=== PATIENT | female | born 1945 | race Caucasian/White ===

== ENCOUNTER → 2017-02-06 | Day surgery (SDC) | payer MEDICARE ==
--- NOTE | 2017-02-04 11:04 | Diagnostic Imaging Report ---
PROCEDURE:CHEST 2 VIEWS TECHNIQUE:PA and lateral chest INDICATION:Preoperative evaluation COMPARISON:Patients [facility], , CHEST 2 VIEWS, 03/27/2015, 10:03. FINDINGS: Lungs are clear and symmetrically inflated. No pleural effusions. Normal heart size and mediastinal contour. Intact skeleton with degenerative change of the shoulders. CONCLUSION: No acute abnormality or interval change from March 2015. Dictated by: Shay Wray M.D. on 02/04/2017 at 11:12 Electronically approved by: Shay Wray M.D. on 02/04/2017 at 11:12
[~2017-02-06] MED LIST: ALLEGRA PO; ANTIOXIDANT SO1 EACH PO; ASMANEX; BENICAR40 MG PO; BIOTIN PO; BUPIVACAINE HCL 0.5% INJ 30 ML VIAL INJ ONE; BUPROPION HCL100 MG PO; CEFAZOLIN SOD 2 GM/D5W 50ML 50 ML IV ONE; CO Q-10 PO; DEXAMETHASONE SOD PHOS INJ 4 MG/ML VIAL ONE; DYMISTA NASAL S23 GM; FAMOTIDINE 20 MG/2 ML VIAL IV ONE; FENTANYL CITRATE/PF 100MCG/2 ML INJ ONE; GAMMAGARD LIQUI IV; GLUCOSAMINE &1 EAC1 PO; GLYCOPYRROLATE INJ 1MG/ 5 ML SYR ONE; GRAPE SEED PO; KETOROLAC TROMETHAMINE 30 MG/ML VIAL ONE; LEVOTHYROXINE50 MCG PO; LIDOCAINE HCL 2% LOCAL INJ 5 ML SDV VIAL INJ ONE; METANX PO; MIDAZOLAM HCL 2 MG/2 ML VIAL ONE; NAPROSYN PO; NEOSTIGMINE 1 MG/ML 10ML VIAL ONE; NEOSTIGMINE 5 MG/5ML SYR ONE; NEXIUM40 MG PO; ONDANSETRON HCL INJ 2 MG/ML VIAL ONE; PROBIOTIC & AC1 EACH PO; PROPOFOL IV EMULSION 10 MG/ML 20 ML VIAL ONE; RANITIDINE; ROCURONIUM BROMIDE 10 MG/ML 5ML VIAL ONE; SEVOFLURANE INHAL SOLN 250 ML PEN BTL ONE; SIMCOR 1,000-21 EACH PO; SIMVASTATIN40 MG PO; SUDAFED 12 HOU120 MG PO; VENTOLIN HFA18 GM INH; VITAMIN B COMP1 EAC1 PO; VITAMIN C PO
--- NOTE | 2017-02-06 20:39 | Operative Report ---
DATE OF PROCEDURE: February 06, 2017 PREOPERATIVE DIAGNOSES 1. Hallux varus, right foot. 2. Hammertoe with bone spur interphalangeal joint of the hallux, right foot. 3. Wound 5th metatarsal base, right foot. 4. Digital contracture metatarsophalangeal joint 2nd and 3rd digits, right foot. POSTOPERATIVE DIAGNOSES 1. Hallux varus, right foot. 2. Hammertoe with bone spur interphalangeal joint of the hallux, right foot. 3. Wound 5th metatarsal base, right foot. 4. Digital contracture metatarsophalangeal joint 2nd and 3rd digits, right foot. TITLE OF OPERATION: 1. Arthrodesis 1st metatarsophalangeal joint of the right foot. 2. Arthroplasty with bone spur removal, hallux of the right foot. 3. Debridement of the wound through skin and subcutaneous tissue, plantar aspect of the 5th metatarsal area, right foot. 4. Extensor tenotomy and capsulotomy of the 2nd and 3rd digits of the right foot. ANESTHESIA: General endotracheal. HEMOSTASIS: A right thigh tourniquet at 350 mmHg. PROCEDURE IN DETAIL: The patient was taken to the operating room in a mildly sedated state and placed upon the operating table in the supine position. Following induction of general anesthetic, the right lower extremity is elevated to 60 degrees to exsanguinate before inflating the pneumatic thigh tourniquet to 350 mmHg for hemostasis. Right lower extremity was placed upon the operating table prior to performing the following procedure. Procedure #1: Varus correction with fusion of the 1st metatarsophalangeal joint of the right foot. A linear longitudinal incision was made overlying the hallux varus deformity 1st metatarsophalangeal joint of the right foot. Incision was deepened via sharp and blunt dissection down to the level of dorsal capsular structure. Care was taken to identify and retract all vital structures encountered. Head of 1st metatarsal was delivered into the surgical site and utilizing a cup and cone reamer system all cartilage was denuded from the head of 1st metatarsal and the base of the proximal phalanx. A drill bit was used to fenestrate the opposing bone surfaces and they were aligned properly for fusion. The hallux was fused 10 degrees of dorsiflexion and the appropriate varus, valgus balance. The area was irrigated with copious amounts of sterile saline solution and a lag screw, a 3.0 cannulated lag screw was inserted. A compression plate was applied to the top of the joint and this was fixated with a combination of 3-0 and 4-0 screws. Some were locking, some non-locking. The area was then irrigated with copious amounts of sterile saline solution. Deep closure and capsular repair with 3-0 Vicryl and skin closure 4-0 Vicryl and 4-0 nylon. Attention was then directed to the 5th metatarsal area where a large wound was present. This was debrided through skin subcutaneous tissue. This was considered to be primarily due transfer of pressure from the previous varus deformity over to the 5th metatarsal head. This patient is mildly insensate as well. After debridement, the area was then dressed in the appropriate mildly compressive dressings. Human tissue allograft was injected into the surrounding areas as well as the surgical incision overlying the 1st metatarsophalangeal joint fusion. It was noted after the fusion that the 2nd and 3rd digits were still held in a tightly contracted position, both dorsally and medially. Therefor, intraoperative decision was made to additionally perform the procedure of extensor tenotomy and capsulotomy at the metatarsophalangeal joint level of the 2nd and 3rd metatarsals. These capsules were released medially to reduce the contracture and extensor tendons were lengthened in order to allow for a full plantarflexion and proper alignment of the lesser digits on the metatarsophalangeal joints. These areas were also irrigated and closed with 3-0 Vicryl and 4-0 nylon. The areas of surgery were all blocked with 0.5 Marcaine, Decadron LA. Human tissue allograft as previously mentioned had been injected into all surgical sites. The appropriate mildly compressive dressings were applied and release of the pneumatic thigh tourniquet showed a normal hyperemic flush to all digits of the right foot. Patient left the operating room with vital signs stable in apparent satisfactory condition, having tolerated both the anesthetic and the procedure very well. Job#: [id number]
== END | disposition home or self-care (01) ==
LOC: OR 06:12
PROVIDERS: ATTEND Podiatrist Foot Surgery
DX: M20.31 Hallux varus (acquired), right foot (principal); M20.41 Other hammer toe(s) (acquired), right foot; S91.301A Unspecified open wound, right foot, initial encounter; M77.51 Other enthesopathy of right foot and ankle; M24.574 Contracture, right foot; M19.90 Unspecified osteoarthritis, unspecified site; J45.909 Unspecified asthma, uncomplicated; G47.33 Obstructive sleep apnea (adult) (pediatric); I10 Essential (primary) hypertension; E78.5 Hyperlipidemia, unspecified; E03.9 Hypothyroidism, unspecified; K21.9 Gastro-esophageal reflux disease without esophagitis; F32.9 Major depressive disorder, single episode, unspecified; F41.9 Anxiety disorder, unspecified; X58.XXXA Exposure to other specified factors, initial encounter; Z01.810 Encounter for preprocedural cardiovascular examination; Z01.818 Encounter for other preprocedural examination
CPT/HCPCS: 11042; 28270 ×2; 28750; 71020; 76000; 93005; J1100; J1885; J2001; J2250; J2405; J2710

== ENCOUNTER 2017-11-08 09:47 | Observation (INO) | payer MEDICARE ==
[~2017-11-08] VITALS: Ht 162.6 cm; Wt 79.4 kg
[~2017-11-08 09:47] MED LIST changes: -BUPIVACAINE HCL 0.5% INJ 30 ML VIAL INJ ONE; -CEFAZOLIN SOD 2 GM/D5W 50ML 50 ML IV ONE; -DEXAMETHASONE SOD PHOS INJ 4 MG/ML VIAL ONE; -FAMOTIDINE 20 MG/2 ML VIAL IV ONE; -FENTANYL CITRATE/PF 100MCG/2 ML INJ ONE; -GLYCOPYRROLATE INJ 1MG/ 5 ML SYR ONE; -KETOROLAC TROMETHAMINE 30 MG/ML VIAL ONE; -LIDOCAINE HCL 2% LOCAL INJ 5 ML SDV VIAL INJ ONE; -MIDAZOLAM HCL 2 MG/2 ML VIAL ONE; -NEOSTIGMINE 1 MG/ML 10ML VIAL ONE; -NEOSTIGMINE 5 MG/5ML SYR ONE; -ONDANSETRON HCL INJ 2 MG/ML VIAL ONE; -PROPOFOL IV EMULSION 10 MG/ML 20 ML VIAL ONE; -RANITIDINE; +RANITIDINE PO; -ROCURONIUM BROMIDE 10 MG/ML 5ML VIAL ONE; -SEVOFLURANE INHAL SOLN 250 ML PEN BTL ONE
[2017-11-08] MEDS ORDERED: ASPIRIN 81 MG CHEW TAB PO STA (10:18)
[2017-11-08] MEDS ORDERED: [UNRECOGNIZED DRUG - OTHER] INH (10:23)
[2017-11-08] MEDS ORDERED: WELLBUTRIN SR150 MG PO (10:23)
[2017-11-08] MEDS ORDERED: ACETAMINOPHEN325 M1 PO (10:23)
[2017-11-08 10:47] LABS: BASOPHILS % 0.2 % (0.0-1.0); EOSINOPHILS # (AUTO) 0.3 (0.0-0.4); EOSINOPHILS % 6.4 % (0.0-6.0); HEMATOCRIT 40.7 % (34.2-44.1); HEMOGLOBIN 13.1 g/dL (12.0-16.0); LYMPHOCYTES % 20.7 % (18.0-39.1); MEAN CORPUSCULAR HEMOGLOBIN 31.8 pg (28-32); MEAN CORPUSCULAR HGB CONC 32.2 g/dL (31-35); MEAN CORPUSCULAR VOLUME 98.8 fL (81-99); MONOCYTES # (AUTO) 0.4 (0.2-0.8); MONOCYTES % 8.7 % (4.4-11.3); NEUTROPHILS # (AUTO) 3.2 (2.1-6.9); NEUTROPHILS % 63.6 % (38.7-80.0); PLATELET COUNT 352 x10e3/uL (140-360); RED BLOOD COUNT 4.12 x10e6/uL (3.6-5.1); RED CELL DISTRIBUTION WIDTH 13.4 % (11.7-14.4)
[2017-11-08 10:55] LABS: INR 0.84; PROTHROMBIN TIME 12.3 seconds (11.9-14.5)
[2017-11-08 10:56] LABS: PARTIAL THROMBOPLASTIN TIME 26.9 seconds (23.8-35.5)
[2017-11-08 10:58] LABS: CLARITY,URINE CLEAR (CLEAR); COLOR,URINE YELLOW (YELLOW)
[2017-11-08 10:59] LABS: BILIRUBIN,URINE NEGATIVE (NEGATIVE); KETONES,URINE NEGATIVE (NEGATIVE); LEUKOCYTE ESTERASE ,URINE 1+ (NEGATIVE); NITRITE,URINE NEGATIVE (NEGATIVE); PROTEIN,URINE DIPSTICK NEGATIVE (NEGATIVE); URINE UROBILINOGEN 0.2 mg/dL (0.2 - 1)
[2017-11-08 11:09] LABS: ALANINE AMINOTRANSFERASE 26 IU/L (0-55); ALBUMIN 4.1 g/dL (3.5-5.0); ALKALINE PHOSPHATASE 82 IU/L (40-150); BLOOD UREA NITROGEN 17 mg/dL (7-26); BUN/CREATININE RATIO 24 (6-25); CALCIUM 10.5 mg/dL (8.4-10.2); CARBON DIOXIDE 26 mmol/L (22-29); CHLORIDE 106 mmol/L (98-107); CREATINE KINASE 150 IU/L (29-168); EST GLOMERULAR FILTRATION RATE > 60 ML/MIN (60-); GLUCOSE 107 mg/dL (74-118); SODIUM 141 mmol/L (136-145)
[2017-11-08 11:10] LABS: BACTERIA,URINE RARE /HPF; EPITHELIAL CELLS,URINE FEW /LPF; TRANSITIONAL EPI CELLS,URINE FEW; WBC,URINE (MAN) 0-5 /HPF (0-5)
--- NOTE | 2017-11-08 11:56 | Diagnostic Imaging Report ---
History:Ataxia, dizziness Comparison studies:None Technique: Axial images were obtained from the skull base to the vertex. Coronal and sagittal images reconstructed from the axial data. Intravenous contrast: None Dose modulation, iterative reconstruction, and/or weight based adjustment of the mA/kV was utilized to reduce the radiation dose to as low as reasonably achievable. Findings: Scalp/skull: No abnormalities. Extra-axial spaces: No masses. No fluid collections. Brain sulci: Mildly prominent. Ventricles: Mild compensatory dilatation. No hydrocephalus. Parenchyma: Few small hypodensities in the supratentorial white matter are small vessel ischemic changes. Chronic lacunar infarct on the right caudate head. No masses, hemorrhage, acute or chronic cortical vascular insults. Sellar/suprasellar region: No abnormalities. Craniocervical junction: Patent foramen magnum. No Chiari one malformation. Incidental findings: Atherosclerotic calcifications in the carotid siphons and vertebral arteries . Impression: No acute abnormalities. Chronic findings: 1. Mild generalized volume loss. 2. Mild supratentorial white matter small vessel ischemic changes. Signed by: DR Mike Kinsey M.D. on 11/08/2017 11:53 AM
[2017-11-08] MEDS: SODIUM CHLORIDE 0.9% 1000ML 1,000 ML IV SCH (13:15)
[2017-11-08 13:48] VITALS: BP 149/84
[2017-11-08] MEDS ORDERED: magnesium PO (14:13)
[2017-11-08] MEDS ORDERED: turmeric PO (14:13)
[2017-11-08] MEDS ORDERED: curcumin PO (14:13)
[2017-11-08] MEDS ORDERED: PROBIOTIC & AC1 EACH PO (14:13)
[2017-11-08] MEDS ORDERED: NAPROXEN250 MG PO (14:13)
[2017-11-08] MEDS ORDERED: fluticasone INH (14:25)
[2017-11-08] MEDS ORDERED: ALLEGRA ALLERG180 MG PO (14:29)
[2017-11-08] MEDS ORDERED: ALBUTEROL SULFATE HFA 8GM INHALATION AEROSOL INH PRN ×3 (14:30→18:30)
[2017-11-08] MEDS ORDERED: RANITIDINE 300 MG PO PRN (14:30)
[2017-11-08 16:59] VITALS: BP 177/82
[2017-11-08] MEDS ORDERED: FLUTICASONE PROPIONATE NASAL SPRAY NS SCH (17:00)
[2017-11-08] MEDS ORDERED: BUPROPION HCL SR 150 MG TAB PO SCH ×2 (17:00)
[2017-11-08] MEDS: NAPROXEN 250 MG TAB PO SCH (17:26)
[2017-11-08] MEDS: ACETAMINOPHEN 325 MG TAB PO PRN (17:26)
[2017-11-08 18:51] LABS: CREATINE KINASE 120 IU/L (29-168)
--- NOTE | 2017-11-08 19:16 | Consultation ---
DATE OF CONSULTATION: November 08, 2017 CARDIOLOGY CONSULTATION REQUESTING PHYSICIAN: Dr. Pimentel. REASON FOR CONSULTATION: Suspected CVA. HISTORY OF PRESENT ILLNESS: This is a 72-year-old woman with history of hypertension, hyperlipidemia, hypothyroidism, questionable history of cerebral AVM, asthma, and sleep apnea, who presents with left-sided weakness. The patient reports she was in her usual state of health until she woke up this morning. She attempted to get out of bed and felt like her left leg was unable to support her weight. She was unsteady with ambulation. She initially thought she had slept wrong and so returned to sleep for an additional hour. Upon awakening, her symptoms remained. She then noted what she described as clumsiness in her left arm later in the morning. Given these symptoms, she therefore presented to the ER for further evaluation. She denies any chest pain, shortness of breath, palpitations, edema, orthopnea, PND, or lightheadedness. She denied any sensation of vertigo, but rather in fact stated she felt like she was unsteady on her feet. REVIEW OF SYSTEMS: Negative except as per HPI. PAST MEDICAL HISTORY 1. Hypertension. 2. Hyperlipidemia. 3. Hypothyroidism. 4. Reported history of possible cerebral AVM. 5. Asthma. 6. Sleep apnea. PAST SURGICAL HISTORY 1. Appendectomy. 2. Tubal ligation. 3. Hysterectomy. 4. Bladder repair. 5. Knee replacement. 6. Foot surgery. ALLERGIES: TETRACYCLINE, CODEINE, AND MORPHINE. SOCIAL HISTORY: Denies tobacco, alcohol, or illicit drugs. FAMILY HISTORY: Pertinent for father with CABG and carotid endarterectomy as well as mother with coronary artery disease. MEDICATIONS: Please see medication list. PHYSICAL EXAMINATION VITAL SIGNS: Temperature 96.2 degrees, pulse 81, respiratory rate 20, blood pressure 138/72, oxygen saturation 95% on room air. GENERAL: Well-developed, well-nourished woman, in no acute distress. HEENT: Normocephalic, atraumatic. Pupils equal. No scleral icterus. NECK: Supple. No thyromegaly or cervical lymphadenopathy. No carotid bruits. LUNGS: Clear to auscultation bilaterally. No wheezes or crackles. CARDIOVASCULAR: Normal rate, regular rhythm. No murmur. Normal S1 and S2. ABDOMEN: Soft, nontender. EXTREMITIES: No edema. NEURO: Nonfocal exam. Strength appears symmetric bilaterally. LABS: WBC 4.97, hemoglobin 13.1, hematocrit 40.7, and platelets 352. Sodium 141, potassium 4, chloride 106, CO2 of 26, BUN 17, creatinine 0.7. AST 19, ALT 26, troponin 0.003, TSH 1.240. IMAGING: CT brain, mildly generalized volume loss, mild supratentorial white matter small vessel ischemic changes. EKG; normal sinus rhythm, normal ECG. IMPRESSION 1. Suspected acute cerebrovascular accident. 2. Hypertension. 3. Hyperlipidemia. 4. Questionable history of cerebral arteriovenous malformation. 5. Hypothyroidism. 6. Asthma. 7. Sleep apnea. RECOMMENDATIONS: Monitor patient on telemetry for any arrhythmias. Echocardiogram and carotid Dopplers have been ordered. We will review the images once they are available. Further evaluation of CVA per neurology. Fasting lipid panel in the morning. Continue home cardiac medications otherwise. Permissive hypertension given suspected CVA. Thank you for this consult. We will continue to follow. Job#: [id number] GIA
[2017-11-08 21:00] VITALS: BP 175/92
[2017-11-08] MEDS: LACTOBACILLUS ACIDOPHILUS CAPSULE PO SCH (21:40)
[2017-11-08] MEDS: SIMVASTATIN 40 MG TAB PO SCH (21:40)
[2017-11-08] MEDS: FLUTICASONE PROPIONATE NASAL SPRAY NS SCH (21:41)
[2017-11-08] MEDS ORDERED: HYDRALAZINE HCL 20 MG/ML VIAL IV PRN (22:15)
[2017-11-09] VITALS (7 sets, daily range): BP systolic 144–160; BP diastolic 65–82
[2017-11-09 05:25] LABS: BASOPHILS % 0.6 % (0.0-1.0); EOSINOPHILS # (AUTO) 0.3 (0.0-0.4); EOSINOPHILS % 7.2 % (0.0-6.0); HEMATOCRIT 37.7 % (34.2-44.1); HEMOGLOBIN 12.2 g/dL (12.0-16.0); LYMPHOCYTES # (AUTO) 1.5 (1.0-3.2); LYMPHOCYTES % 31.6 % (18.0-39.1); MEAN CORPUSCULAR HEMOGLOBIN 31.9 pg (28-32); MEAN CORPUSCULAR HGB CONC 32.4 g/dL (31-35); MEAN CORPUSCULAR VOLUME 98.4 fL (81-99); MONOCYTES # (AUTO) 0.7 (0.2-0.8); NEUTROPHILS # (AUTO) 2.1 (2.1-6.9); NEUTROPHILS % 45.2 % (38.7-80.0); PLATELET COUNT 309 x10e3/uL (140-360); RED BLOOD COUNT 3.83 x10e6/uL (3.6-5.1); RED CELL DISTRIBUTION WIDTH 13.4 % (11.7-14.4)
[2017-11-09 05:58] LABS: CREATINE KINASE 83 IU/L (29-168)
[2017-11-09 06:12] LABS: ANION GAP 13.9 mmol/L (8-16); BLOOD UREA NITROGEN 14 mg/dL (7-26); BUN/CREATININE RATIO 19 (6-25); CALCIUM 9.7 mg/dL (8.4-10.2); CARBON DIOXIDE 22 mmol/L (22-29); CHLORIDE 107 mmol/L (98-107); CHOL/HDL RATIO 3.2 (3.0-3.6); CHOLESTEROL 137 MD/DL (0-199); CREATININE, SERUM 0.75 mg/dL (0.57-1.11); EST GLOMERULAR FILTRATION RATE > 60 ML/MIN (60-); GLUCOSE 103 mg/dL (74-118); HDL CHOLESTEROL 43 MG/DL (40-60); LDL CHOLESTEROL 67 MG/DL (60-130); POTASSIUM 3.9 mmol/L (3.5-5.1); SODIUM 139 mmol/L (136-145); TRIGLYCERIDES 133 MG/DL (0-149)
[2017-11-09] MEDS: SODIUM CHLORIDE 0.9% 1000ML 1,000 ML IV SCH ×2 (06:19→17:17)
[2017-11-09] MEDS: LEVOTHYROXINE SODIUM 50 MCG TAB PO SCH (06:20)
[2017-11-09] MEDS: VITAMIN B COMPLEX PO SCH (08:34)
[2017-11-09] MEDS: FLUTICASONE PROPIONATE NASAL SPRAY NS SCH ×2 (08:34→21:00)
[2017-11-09] MEDS: NAPROXEN 250 MG TAB PO SCH ×2 (08:35→17:17)
[2017-11-09] MEDS: MAGNESIUM OXIDE 400 MG TAB PO SCH (08:35)
[2017-11-09] MEDS: BUPROPION HCL SR 150 MG TAB PO SCH ×3 (08:35→17:17)
[2017-11-09] MEDS: ASCORBIC ACID 500 MG TAB PO SCH (08:35)
[2017-11-09] MEDS: ACETAMINOPHEN 325 MG TAB PO PRN ×2 (08:35→17:17)
[2017-11-09] MEDS ORDERED: ASPIRIN 81 MG ENTERIC COATED PO SCH (09:00)
--- NOTE | 2017-11-09 12:39 | Progress Note ---
DATE: November 09, 2017 CARDIOLOGY PROGRESS NOTE SUBJECTIVE: No major complaints overnight. Still has some residual weakness on the left side. Denies any chest pain or shortness of breath. Echocardiogram is pending. MRI of the brain done today. OBJECTIVE VITAL SIGNS: Temperature 95.7, pulse 73, respiratory rate 16, blood pressure 144/65, satting 95% on room air. GENERAL: Well-developed, well-nourished woman in no acute distress. CARDIOVASCULAR: Regular rate and rhythm. No murmurs, rubs or gallops. Palpable carotid pulses. Palpable radial pulses. Lower extremity varicosities without edema. ABDOMEN: Soft, nontender. No masses. LUNGS: Clear to auscultation bilaterally. No respiratory distress. NEURO AND PSYCH: Alert and oriented to person, place and time. Normal affect. LABORATORY DATA: Reviewed. IMAGING: CT brain with no acute changes. MRI of the brain pending. IMPRESSION 1. Suspected acute cerebrovascular accident. 2. Hypertension. 3. Hyperlipidemia. 4. Hypothyroidism. 5. Asthma. 6. Sleep apnea. RECOMMENDATIONS: Continue to monitor patient on telemetry. So far, no arrhythmias are seen. Echo and carotid Dopplers are pending. Will review images when they are available. Brain MRI is pending. Continue current cardiac medications. Thank you for this consult. Job#: [id number]
--- NOTE | 2017-11-09 13:50 | Diagnostic Imaging Report ---
Exam: Brain MRI without IV contrast History: Possible stroke, acute left sided paresis. Comparison studies: None Technique: Sagittal and axial T2 FS, axial DWI, axial T2*GRE, axial T1 FLAIR and axial coronal T2 FLAIR.. Intravenous contrast: None Findings: Several pulse sequences are somewhat limited by artifacts related to patient motion. DWI sequence is also limited by susceptibility artifact related to metallic dental hardware. Scalp: Normal in signal. No masses. Bone marrow: Normal in signal intensity. Brain sulci: Appropriate for age. Ventricles: Mild compensatory dilatation. No hydrocephalus. Extra axial spaces: No mass, no fluid collection. Small linear focus of acute ischemia with restricted diffusion and T2 FLAIR hyperintensity in the right parietal tipton radiata white matter. No other acute ischemia identified within the limits of this exam. No mass or hemorrhage. A few scattered T2 FLAIR hyperintense foci in the supratentorial white matter are nonspecific but most compatible with chronic small vessel ischemic changes. T2 FLAIR hyperintense signal changes in the lee are also nonspecific but may reflect chronic small vessel ischemic changes. There are small chronic cortical/subcortical insults in the right cerebellum as well as chronic lacunar insults in the head of the right caudate nucleus and along the anterior limb of the right internal capsule. Suprasellar region: No abnormalities. Craniocervical junction: Patent foramen magnum. No Chiari malformation. Vessels: Normal flow-voids in the arteries and sinuses. Incidental findings: Mild nonspecific T2 hyperintense inflammatory changes in the right anterior ethmoids IMPRESSION: Small acute nonhemorrhagic ischemic insult in the right parietal tipton radiata. Chronic findings: 1. Mild generalized volume loss. 2. Mild chronic microvascular ischemic changes. 3. Chronic insults in the right cerebellum, anterior limb right internal capsule and right caudate nucleus. Signed by: Dr. Adrián Mi M.D. on 11/09/2017 1:47 PM
[2017-11-09] MEDS: ENOXAPARIN SOD INJ 40 MG/0.4 ML SYR SC SCH (17:17)
[2017-11-09] MEDS ORDERED: LACTULOSE SYRUP 20 GM/30 ML UDC PO PRN (20:00)
[2017-11-09] MEDS: SIMVASTATIN 40 MG TAB PO SCH (21:47)
[2017-11-09] MEDS: LACTOBACILLUS ACIDOPHILUS CAPSULE PO SCH (21:47)
[2017-11-10] VITALS: BP 157/76
--- NOTE | 2017-11-10 03:17 | Consultation ---
DATE OF CONSULTATION: November 09, 2017 NEUROLOGY CONSULTATION HISTORY OF PRESENT ILLNESS: Ms. Partida is a 72-year-old right hand dominant woman with past medical history significant for a prior history of hypertension, hyperlipidemia, and obstructive sleep apnea, treated with CPAP, admitted to [facility] on November 08, 2017, with symptoms concerning for a stroke. Ms. Partida awoke at approximately 0700 on November 08, 2017, with weakness and numbness of the left leg. The patient assumed she had slept in an awkward position and so returned to sleep for an additional hour. Upon awakening at approximately 0800, the weakness and numbness in the left leg were unchanged. Some time later, Ms. Partida noted clumsiness and weakness of the left arm. In addition to these symptoms, the patient reports poor balance and impairment of gait which she attributed to weakness of the left leg. Ms. Partida does not report a visual field cut or other disturbance, dysarthria, aphasia, facial droop, dizziness, or confusion. After the above described symptoms persisted for more than an 1 hour, the patient drove herself to the Emergency Center at [facility] for further evaluation. Upon arrival in the emergency center, the patient was afebrile with a blood pressure 189/105 mmHg and a pulse of 69 beats per minute. The patient's neurological examination was documented as demonstrating an abnormal gait due to weakness in the left lower extremity and mild ataxia. A CT of the brain without contrast was performed while the patient was in the Emergency Center. This study did not reveal evidence of recent large territorial ischemia or hemorrhage. Ms. Partida was admitted to [facility] under observation status for further evaluation and treatment. Ms. Partida does not report experiencing similar symptoms previously. REVIEW OF SYSTEMS: Weakness of the left arm and leg, numbness of the left arm and leg, impairment of balance and gait. Otherwise, the 12-point review of systems is negative. PAST MEDICAL HISTORY: Prior history of hypertension, hyperlipidemia, asthma, mild chronic obstructive pulmonary disease, thyroid disease, nephrolithiasis, gastroesophageal reflux disease, prior history of migraines, immune deficiency disorder treated with monthly infusions of IVIG, polio at the age of 4 years, obstructive sleep apnea treated with CPAP. PAST SURGICAL HISTORY: Appendectomy, bilateral tubal ligation, repair of uterine prolapse, multiple bilateral foot surgeries, "bladder, rectal, pelvic lift," left knee replacement. PAST HOSPITALIZATIONS: Surgeries/procedures, childbirth times 3. FAMILY MEDICAL HISTORY: The patient's paternal and maternal grandparents are . All four grandparents had strokes. The patient's father is . He had a history of coronary artery disease, carotid artery disease, and stroke. Patient's mother is from a stroke. Ms. Partida had 2 siblings. A brother is alive and has a history of 2 prior strokes. A sister is . Her past medical history was significant for heart disease and stroke. Ms. Partida has 2 living children. Her daughter has a medical history significant for diabetes mellitus type 2 and obesity. Her son is healthy. A third child was born anencephalic. SOCIAL HISTORY: Ms. Partida is . She is retired. The patient does not report current or prior tobacco, alcohol, or recreational drug use. HOME MEDICATIONS: Please see the list available on the electronic medical records. ALLERGIES: TETRACYCLINE, LEVOFLOXACIN, CODEINE, MORPHINE. MS. PARTIDA ENDORSES ALLERGIES TO CITRUS FRUITS, PEPPERS, AND PEANUT BUTTER. THERE ARE NO KNOWN ALLERGIES TO LATEX. THERE ARE NO KNOWN ALLERGIES TO IODINE OR OTHER CONTRAST MATERIALS. PHYSICAL EXAMINATION VITAL SIGNS: Height 64 inches, weight 159 pounds, BMI 27.3 kg per meter squared. Blood pressure 160/81 mmHg. Pulse 79 beats per minute. Respiratory rate 14 breaths per minute. Oxygen saturation 95% on room air. GENERAL: The patient is awake and alert. Does not appear distressed. Overweight. HEENT: Normocephalic, atraumatic. Pupils are equal, round, and reactive to light. Moist mucous membranes. NECK: Supple. No appreciable thyromegaly. Possible right carotid bruit. CARDIOVASCULAR: S1, S2, regular rate and rhythm. No murmurs, rubs, or gallops. RESPIRATORY: Clear to auscultation bilaterally. No wheezes, rhonchi or rales. EXTREMITIES: The skin is warm and dry. No clubbing, cyanosis, or edema. The posterior tibial and dorsalis pedis pulses are 2+ and symmetric. SKIN: No rashes or lesions. NEUROLOGIC Memory/Attention: Patient is awake and alert. Oriented to person place, time, and situation. Cranial Nerves: Cranial nerve I--not tested. Cranial nerve II, III, IV, and --pupils are equal and round, react briskly to light (from 4 mm to 2 mm). Extraocular movements intact. No nystagmus. Cranial nerve V--sensation to light touch and pinprick is intact in the bilateral V1 through V3 distributions. Strength of the temporalis and masseter muscles is within normal limits. Cranial nerve VII--the face is symmetric as are all facial movements. Strength is within normal limits. Cranial nerve VIII--hearing is intact to finger rub bilaterally. Cranial nerve IX, X--the soft palate elevates equally and symmetrically. Cranial nerve XI--normal strength of the bilateral sternocleidomastoid and trapezius muscles. Cranial nerve XII--the tongue protrudes in midline and moves symmetrically from side to side. Strength: Bulk is normal. Strength is 5/5 in the right deltoid, biceps, triceps, wrist flexors and extensors, finger flexors and extensors, intrinsic hand muscles, hip flexors, knee flexors and extensors, ankle dorsiflexion and plantar flexion, and intrinsic foot muscles. Strength is 5/5 in the left deltoids, biceps, 4+/5 in the left triceps, 5/5 in the left wrist flexors, 4+/5 in the left wrist extensors, 5/5 in the left finger flexors, 4+/5 in the left finger extensors, 4+/5 in the left intrinsic hand muscles, 4+/5 in the left hip flexors, 4+/5 in the left knee flexors, 5/5 in the left knee extensors, 4+/5 in the left ankle dorsiflexion, 5/5 in the left ankle plantar flexion, and a 4+/5 in the left intrinsic foot muscles. Tone is normal in all 4 extremities. DTRs: Deep tendon reflexes are 2+ and symmetric at the triceps, biceps, brachioradialis, patellas, and Achilles. Plantar responses are flexor bilaterally. Sensation: Sensation is intact to light touch and pinprick in both arms and both legs. Cerebellar: There is dysmetria with egwmin-ambt-ffjmyi and heel-gomez movements on the left, out of bounds of paresis. Uvcjwg-lnry-uunyqk and heel-gomez movements are intact on the right without dysmetria or other impairment. Gait: Deferred. Speech: Spontaneous speech is normal without appreciable dysarthria or aphasia. Repetition is intact. Involuntary Movements: None. Pronator Drift: Positive in the left arm and left leg. LABORATORY DATA: The patient's comprehensive metabolic panel is unremarkable. Cardiac enzymes are negative times 3. Total cholesterol 137, triglycerides 133, LDL cholesterol 67, HDL cholesterol 43. TSH 1.240. The CBC with differential and platelets reveals a white blood cell count of 4.72 with 45.2% neutrophils, 31.6% lymphocytes, 15.0% monocytes, and 7.2% eosinophils. The hemoglobin and hematocrit are 12.2 and 37.7, respectively. The platelet count is 309. Coagulation profile is within normal limits. A urinalysis was significant for 1+ leukocyte esterase and a few transitional epithelials cells. A urine culture collected on November 08, 2017, shows no growth at 18 to 24 hours. DIAGNOSTIC STUDIES: Electrocardiogram, November 08, 2017: Normal sinus rhythm at [address] of the brain without contrast, November 08, 2017: On my review, there is no evidence of recent large territorial ischemia, hemorrhage, mass, or mass effect. A chronic lacunar infarct is seen in the right caudate head. Cerebral volumes are appropriate for age. There are findings compatible with mild to moderate chronic small vessel ischemic disease. MRI of the brain without contrast, November 09, 2017: On my review, there is acute ischemia in the right tipton radiata, in the parietal region. Chronic lacunar infarcts are seen in the right cerebellum, anterior limb of the right internal capsule, in the right caudate nucleus. Cerebral volumes are appropriate for age. There are scattered, nonspecific T2/flair hyperintense foci in the supratentorial deep white matter compatible with mild chronic small vessel ischemic disease. Echocardiogram, November 09, 2017: Ejection fraction 55% to 60%. Concentric left ventricular hypertrophy. Trace mitral regurgitation, tricuspid regurgitation, and pulmonic insufficiency. ASSESSMENT AND PLAN: Ms. Partida is a 72-year-old right hand dominant woman with past medical history significant for a prior history of hypertension, hyperlipidemia, and obstructive sleep apnea, admitted with mild left hemiparesis and dysmetria secondary to an acute ischemic stroke in the right tipton radiata, parietal region. The patient has undergone a thorough neurological examination with findings detailed above. The patient's laboratory data and other diagnostic studies have been reviewed and are documented above. RECOMMENDATIONS 1. A hemoglobin A1c will be ordered to complete stroke evaluation. 2. Bilateral carotid artery ultrasound with Doppler has been ordered and is pending. 3. Treatment with aspirin 325 mg by mouth daily for stroke prophylaxis will be prescribed. 4. Continue with permissive hypertension pending the results of vessel imaging. 5. The patient's total cholesterol and LDL cholesterol are at goal. Continue treatment with the patient's home medications of simvastatin 40 mg by mouth at bedtime daily. 6. Follow up the results of the hemoglobin A1c. Tight glycemic control is recommended while the patient remains in hospital. 7. The patient has no speech or cognitive deficits. A speech therapy consultation is unnecessary. A physical therapy consultation will be ordered for evaluation for mild left hemiparesis and dysmetria. 8. GI prophylaxis with Pepcid 20 mg by mouth twice daily with meals. DVT prophylaxis with Lovenox 40 mg subcutaneously daily. 9. Defer treatment of the remaining medical comorbidities to the primary and other services following the patient. Thank you for this consultation. I will continue to follow this patient while she remains in the hospital. TIME SPENT: 70 minutes. Job#: [id number] RADHA DISLA
[2017-11-10 04:00] VITALS: BP 144/71
[2017-11-10] MEDS: SODIUM CHLORIDE 0.9% 1000ML 1,000 ML IV SCH ×2 (04:38→16:05)
[2017-11-10] MEDS: LEVOTHYROXINE SODIUM 50 MCG TAB PO SCH (06:05)
[2017-11-10 08:35] VITALS: BP 138/76
[2017-11-10] MEDS: NAPROXEN 250 MG TAB PO SCH ×2 (08:57→16:05)
[2017-11-10] MEDS: FAMOTIDINE 20 MG TAB PO SCH ×2 (08:57→16:05)
[2017-11-10] MEDS: MAGNESIUM OXIDE 400 MG TAB PO SCH (08:57)
[2017-11-10] MEDS: ASCORBIC ACID 500 MG TAB PO SCH (08:57)
[2017-11-10] MEDS: VITAMIN B COMPLEX PO SCH (08:57)
[2017-11-10] MEDS: FLUTICASONE PROPIONATE NASAL SPRAY NS SCH (08:57)
[2017-11-10] MEDS: BUPROPION HCL SR 150 MG TAB PO SCH ×2 (08:57→16:05)
[2017-11-10] MEDS ORDERED: ASPIRIN 81 MG ENTERIC COATED PO SCH (09:00)
[2017-11-10] MEDS ORDERED: ASPIRIN 325 MG TAB EC PO SCH (09:00)
[2017-11-10 09:04] VITALS: BP 138/76
[2017-11-10 12:32] VITALS: BP 151/78
--- NOTE | 2017-11-10 12:34 | Progress Note ---
DATE: November 10, 2017 CARDIOLOGY PROGRESS NOTE SUBJECTIVE: Patient denies chest pain or shortness of breath. OBJECTIVE VITAL SIGNS: Temperature 96.8 degrees, pulse 78, respiratory rate 18, blood pressure 138/76, oxygen saturation 93% on room air. GENERAL: Awake, alert, in no acute distress. LUNGS: Clear to auscultation bilaterally. No wheezes or crackles. CARDIOVASCULAR: Normal rate, regular rhythm. No murmur. Normal S1 and S2. ABDOMEN: Soft, nontender. EXTREMITIES: No edema. CARDIAC MEDICATIONS 1. Aspirin 325 mg p.o. daily. 2. Levothyroxine 50 mcg p.o. daily. 3. Simvastatin 40 mg p.o. nightly. LABS: None today. TELEMETRY: Normal sinus rhythm. IMPRESSION 1. 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 2. Hypertension. 3. Hyperlipidemia. 4. Hypothyroidism. 5. Asthma. 6. Sleep apnea. RECOMMENDATIONS: Continue monitoring patient on telemetry. So far no arrhythmias have been documented. Carotid Doppler was without evidence of hemodynamically significant stenosis. Echocardiogram was likewise unrevealing. Continue current cardiac medications. Risk-factor modification is recommended. Patient's LDL is at goal. We will continue current simvastatin dose. Thank you for this consult. We will continue to follow. Job#: [id number]
[2017-11-10] MEDS ORDERED: AMLODIPINE BESYLATE 5 MG TAB PO ONE (15:30)
[2017-11-10] MEDS: ENOXAPARIN SOD INJ 40 MG/0.4 ML SYR SC SCH (16:05)
[2017-11-10] MEDS ORDERED: ASPIRIN325 MG PO (16:56)
[2017-11-10] MEDS ORDERED: AMLODIPINE BESYL5 MG PO ×2 (16:58→16:59)
[2017-11-10 17:16] VITALS: BP 158/82
== END 2017-11-10 18:15 | disposition home or self-care (01) ==
LOC: ER 09:47 → ERHOLD 12:39 → IMCU 13:48
DX: I63.512 Cerebral infarction due to unspecified occlusion or stenosis of left middle cerebral artery (principal); G81.94 Hemiplegia, unspecified affecting left nondominant side; R27.8 Other lack of coordination; I10 Essential (primary) hypertension; E78.5 Hyperlipidemia, unspecified; E03.9 Hypothyroidism, unspecified; G47.33 Obstructive sleep apnea (adult) (pediatric); Z82.3 Family history of stroke; J45.909 Unspecified asthma, uncomplicated; Z88.1 Allergy status to other antibiotic agents; Z88.5 Allergy status to narcotic agent; Z91.010 Allergy to peanuts; Z88.8 Allergy status to other drugs, medicaments and biological substances; Z91.018 Allergy to other foods
CPT/HCPCS: 36415 ×2; 70450; 70551; 80048; 80053; 80061; 81001; 82550 ×2; 82553 ×2; 83036; 84443; 84484 ×2; 85025 ×2; 85610; 85730; 87086; 93005; 93306; 93880; 97116; 97161; 99284; G0378 ×3; G8978; G8979; J1650 ×2; J7030 ×3

== ENCOUNTER → 2020-11-01 | Outpatient (CLI) | payer MEDICARE ==
[~2020-11-01] MED LIST changes: +ACETAMINOPHEN325 M1 PO; +ALLEGRA ALLERG180 MG PO; +AMLODIPINE BESYL5 MG PO; +ASPIRIN325 MG PO; +NAPROXEN250 MG PO; +WELLBUTRIN SR150 MG PO; +[UNRECOGNIZED DRUG - OTHER] INH; +curcumin PO; +fluticasone INH; +magnesium PO; +turmeric PO
== END ==
LOC: CT 10:35
PROVIDERS: ATTEND Family Medicine
DX: M79.641 Pain in right hand (principal); M79.89 Other specified soft tissue disorders

== ENCOUNTER → 2024-08-22 | Outpatient (REF) | payer MEDICARE ==
[~2024-08-22] MED LIST changes: +BENICAR20 MG PO; +CELEBREX100 MG PO; +COLLAGEN 15001 EACH PO; +DOXYCYCLINE HY100 MG PO; +DYMISTA NASAL S23 GM INH; +FAMOTIDINE20 MG PO; +FLOVENT DISKUS50 MCG INH; +KRILL OIL 1,001 EACH PO; +MULTI-VITAMIN1 EACH PO; +ONDANSETRON ODT4 MG PO; +[UNRECOGNIZED DRUG - OTHER] PO; +[UNRECOGNIZED DRUG - OTHER] PO
== END ==
LOC: MAMMO 13:24
PROVIDERS: ATTEND Family Medicine
DX: Z12.31 Encounter for screening mammogram for malignant neoplasm of breast (principal)
CPT/HCPCS: 77067